=== PATIENT | female | born 1950 | race Caucasian/White ===

== ENCOUNTER → 2017-10-05 | Outpatient (CLI) | payer OTHER ==
[~2017-10-05] VITALS: Ht 160 cm; Wt 90.7 kg
[~2017-10-05] MED LIST: ASPIRIN81 M2 PO; CIMETIDINE800 MG PO; PRAVACHOL20 MG PO; SINGULAIR10 MG PO; TRAZODONE HCL50 MG PO; VITAMIN B122500 MCG PO; VITAMIN D32000 UNI1 PO
== END | disposition home or self-care (01) ==
LOC: AMB 12:55
PROC: 0DJD8ZZ Inspection of Lower Intestinal Tract, Via Natural or Artificial Opening Endoscopic (ICD-10-PCS; principal; 2017-10-05)
DX: Z12.11 Encounter for screening for malignant neoplasm of colon (principal); K57.30 Diverticulosis of large intestine without perforation or abscess without bleeding; K64.8 Other hemorrhoids; K59.09 Other constipation; E78.5 Hyperlipidemia, unspecified; J45.20 Mild intermittent asthma, uncomplicated; K21.9 Gastro-esophageal reflux disease without esophagitis; Z80.0 Family history of malignant neoplasm of digestive organs; Z79.82 Long term (current) use of aspirin; Z83.71 Family history of colonic polyps
CPT/HCPCS: J2250

== ENCOUNTER → 2018-04-08 | Outpatient (CLI) | payer OTHER ==
[~2018-04-08] VITALS: Ht 157.5 cm; Wt 95.3 kg
[~2018-04-08] MED LIST changes: +DESYREL100 MG PO
== END | disposition home or self-care (01) ==
LOC: AMB 07:53
PROC: 0DB68ZX Excision of Stomach, Via Natural or Artificial Opening Endoscopic, Diagnostic (ICD-10-PCS; principal; 2018-04-08)
DX: K29.50 Unspecified chronic gastritis without bleeding (principal); K21.9 Gastro-esophageal reflux disease without esophagitis; K44.9 Diaphragmatic hernia without obstruction or gangrene; E78.5 Hyperlipidemia, unspecified; Z79.82 Long term (current) use of aspirin
CPT/HCPCS: 88305; 88342 TC